=== PATIENT | female | born 1985 | race Caucasian/White ===

== ENCOUNTER 2016-09-17 11:03 | Emergency (ER) | payer SELFPAY ==
[~2016-09-17] VITALS: Ht 162.6 cm; Wt 111.6 kg
[~2016-09-17 11:03] MED LIST: AMITRIPTYLINE H25 MG PO; ENDOCET 5-3251 EACH PO; FIORICET,ESG1 TABLET PO; FLINTSTONE VIT PO; FLINTSTONES CO1 EACH PO; FOLIC ACID1 MG PO; IBUPROFEN800 MG PO; Motrin PO; NAPROSYN500 MG PO; NASONEX17 GM BOTH NARES; ORTHO TRI-CY1 TABLE1 PO; PRENATAL TABLE1 EAC3 PO; ROBITUSSIN AC,T10 ML PO; TOPAMAX15 MG PO; Tylenol Extra Streng PO; VITAMIN B-2100 MG PO; ZITHROMAX Z-PA250 MG PO
[2016-09-17 11:53] LABS: EOSINOPHIL (%) 2.1 % (0-5); EOSINOPHIL COUNT 0.2 K/uL (0-0.3); HEMATOCRIT 41.3 % (36.0-46.0); IMMATURE GRANULOCYTE (%) 0.3 % (0.0-0.7); IMMATURE GRANULOCYTE COUNT 0.2 K/uL; LYMPHOCYTE COUNT 1.8 K/uL (1.0-2.8); MCH 28.9 PG (29.0-34.0); MCHC 34.4 G/DL (30.0-36.0); MCV 84.1 FL (83-99); MEAN PLAT.VOLUME 10.7 uM^3 (9.5-12.4); MONOCYTE COUNT 0.4 K/uL (0-0.8); NEUTROPHIL COUNT 4.8 K/uL (1.8-6.4); PLATELET COUNT 177 K/uL (156-360); RBC DIS.WIDTH-CV 13.1 % (11.8-14.6); RBC DIS.WIDTH-SD 39.8 % (39-53); RED BLOOD COUNT 4.91 M/uL (3.80-5.20); WHITE BLOOD COUNT 7.2 K/uL (4.1-10.2)
[2016-09-17 12:03] LABS: D-DIMER ELISA 0.22 mg/L FEU (< 0.57)
[2016-09-17 12:11] LABS: CHLORIDE 106 mEq/L (99-109); SODIUM 141 mEq/L (136-147)
[2016-09-17 12:13] LABS: GLUCOSE 90 mg/dL (70-99)
[2016-09-17 12:14] LABS: ANION GAP 10 MEQ/L (2-14)
[2016-09-17 12:16] LABS: GFR ESTIMATE (CALCULATED) > 59 mL/min/
[2016-09-17 12:17] LABS: UREA NITROGEN (BUN) 14 mg/dL (9-23)
[2016-09-17 12:21] LABS: TROP-I INTERPRETATION NEGATIVE; TROPONIN-I < 0.01 ng/mL (0.0-0.30)
[2016-09-17] MEDS ORDERED: PROMETHAZINE HC25 M1 PO (12:24)
[2016-09-17 13:19] VITALS: BP 138/80
== END 2016-09-17 13:19 | disposition home or self-care (01) ==
LOC: EME 11:03
PROVIDERS: Emergency Medicine
DX: R07.89 Other chest pain (principal); F41.1 Generalized anxiety disorder
CPT/HCPCS: 71010; 80048; 84484; 85025; 85379; 93005; 99281; 99283

== ENCOUNTER 2017-05-05 21:43 | Emergency (ER) | payer SELFPAY ==
[~2017-05-05] VITALS: Ht 162.6 cm; Wt 117.3 kg
[~2017-05-05 21:43] MED LIST changes: +PROMETHAZINE HC25 M1 PO
[2017-05-05] MEDS ORDERED: CLEOCIN300 MG PO (22:24)
[2017-05-05 22:40] VITALS: BP 158/91
== END 2017-05-05 22:41 | disposition home or self-care (01) ==
LOC: EME 21:43
DX: N61.1 Abscess of the breast and nipple (principal)
CPT/HCPCS: 99281; 99283

== ENCOUNTER 2017-05-09 14:11 | Emergency (ER) | payer SELFPAY ==
[~2017-05-09] VITALS: Ht 162.6 cm; Wt 117.9 kg
[~2017-05-09 14:11] MED LIST changes: +CLEOCIN300 MG PO
[2017-05-09 17:22] LABS: MCH 28.8 PG (29.0-34.0); MCHC 33.7 G/DL (30.0-36.0); MCV 85.4 FL (83-99); MEAN PLAT.VOLUME 10.1 uM^3 (9.5-12.4); PLATELET COUNT 194 K/uL (156-360); RBC DIS.WIDTH-CV 12.7 % (11.8-14.6); RBC DIS.WIDTH-SD 39.8 % (39-53); WHITE BLOOD COUNT 12.9 K/uL (4.1-10.2)
[2017-05-09 17:31] LABS: CHLORIDE 105 mEq/L (99-109); SODIUM 139 mEq/L (136-147)
[2017-05-09 17:33] LABS: GLUCOSE 105 mg/dL (70-99)
[2017-05-09 17:34] LABS: ANION GAP 15 MEQ/L (2-14)
[2017-05-09 17:35] LABS: TOTAL BILIRUBIN 0.3 mg/dL (0.0-1.0)
[2017-05-09 17:36] LABS: ALKALINE PHOSPHATASE 47 IU/L (3-129)
[2017-05-09 17:37] LABS: GFR ESTIMATE (CALCULATED) > 59 mL/min/
[2017-05-09 17:38] LABS: UREA NITROGEN (BUN) 11 mg/dL (9-23)
[2017-05-09] MEDS ORDERED: NORCO 5/3251 TABLET PO (20:29)
[2017-05-09 21:25] VITALS: BP 98/56
== END 2017-05-09 21:30 | disposition home or self-care (01) ==
LOC: EME 14:11
PROVIDERS: Physician Assistant
PROC: 0H9TXZZ (ICD-10-PCS; principal; 2017-05-09)
DX: N61.1 Abscess of the breast and nipple (principal); Z80.3 Family history of malignant neoplasm of breast
CPT/HCPCS: 76642; 80053; 83605; 85027; 87040; 87070; 87075; 87076; 87185; 87205; 99281; 99285; J0696; J2270; J3010; J7050

== ENCOUNTER 2017-05-12 11:18 | Emergency (ER) | payer SELFPAY ==
[~2017-05-12] VITALS: Ht 162.6 cm; Wt 116.8 kg
[~2017-05-12 11:18] MED LIST changes: +NORCO 5/3251 TABLET PO
[2017-05-12 13:59] VITALS: BP 131/61
== END 2017-05-12 13:59 | disposition home or self-care (01) ==
LOC: EME 11:18
DX: Z48.01 Encounter for change or removal of surgical wound dressing (principal); N61.1 Abscess of the breast and nipple
CPT/HCPCS: 99281; 99284